=== PATIENT | female | born 1950 | race Caucasian/White ===

== ENCOUNTER 2017-07-07 14:16 | Emergency (ER) | payer OTHER ==
[~2017-07-07] VITALS: Ht 167.6 cm; Wt 81.7 kg
[~2017-07-07 14:16] MED LIST: ADVIL PO; B-100 COMPLEX1 EAC1 PO; CLARITIN-D 121 EACH PO; COMMIT4 MG BC; COMPAZINE10 M1 PO; KENALOG63 GM TP; LORTAB PO; LUNESTA2 MG PO; LYRICA 50 MG50 MG PO; MIDRIN CAPSULE1 CAP PO; OMEGA-31000 MG PO; PROTONIX40 M2 PO; VALIUM5 MG PO; VITAMIN D400 UNI1 PO; XANAX 0.5 MG0.5 M1 PO
[2017-07-07 16:17] VITALS: BP 133/65
[2017-07-07] MEDS ORDERED: ZOFRAN ODT4 M1 PO (16:18)
[2017-07-07] MEDS ORDERED: MOBIC15 MG PO (16:23)
== END 2017-07-07 16:32 | disposition home or self-care (01) ==
LOC: ER 14:16
DX: S13.4XXA Sprain of ligaments of cervical spine, initial encounter (principal); F07.81 Postconcussional syndrome; R11.2 Nausea with vomiting, unspecified; M54.2 Cervicalgia; J44.9 Chronic obstructive pulmonary disease, unspecified; M19.90 Unspecified osteoarthritis, unspecified site; J45.909 Unspecified asthma, uncomplicated; F10.99 Alcohol use, unspecified with unspecified alcohol-induced disorder; Z88.1 Allergy status to other antibiotic agents; Z88.5 Allergy status to narcotic agent; Z88.8 Allergy status to other drugs, medicaments and biological substances; Z91.041 Radiographic dye allergy status; Z93.2 Ileostomy status; V49.9XXA Car occupant (driver) (passenger) injured in unspecified traffic accident, initial encounter; Y93.89 Activity, other specified; Y92.89 Other specified places as the place of occurrence of the external cause; Y99.8 Other external cause status